=== PATIENT | female | born 1980 | race Caucasian/White ===

== ENCOUNTER 2016-11-05 16:11 | Outpatient (CLI) | payer BC ==
[2016-11-05] MEDS ORDERED: NIFEdipine 10 MG CAPSULE PO ONE ×2 (16:45→18:00)
[2016-11-05] MEDS ORDERED: SODIUM CHLORIDE FLUSH 0.9% 10 ML SYRINGE IVP ONE (16:53)
[2016-11-05] MEDS ORDERED: LACTATED RINGERS 1,000 ML IV SCH (18:00)
[2016-11-05] MEDS ORDERED: LACTATED RINGERS 1,000 ML IV ONE (18:00)
== END 2016-11-05 19:45 | disposition home or self-care (01) ==
DX: O47.02 False labor before 37 completed weeks of gestation, second trimester (principal); Z3A.27 27 weeks gestation of pregnancy; O99.282 Endocrine, nutritional and metabolic diseases complicating pregnancy, second trimester; E86.0 Dehydration; O26.872 Cervical shortening, second trimester; O09.522 Supervision of elderly multigravida, second trimester; Z98.890 Other specified postprocedural states; Z87.440 Personal history of urinary (tract) infections
CPT/HCPCS: 76817; 81001; 82731; 87210; 87220; 87480; 87491; 87510; 87591; 87660; 99214; A9270